=== PATIENT | male | born 1985 ===

== ENCOUNTER 2019-06-12 01:05 | Outpatient (CLI) | payer OTHER, SELFPAY ==
--- NOTE | 2019-06-12 09:17 | DI.MRI_ITS ---
EXAM: MR BRAIN WO CLINICAL HISTORY: PERSISTENT HEADACHE,FRONTAL PRESSURE ACROSS FACE AND BEHIND EYES TECHNIQUE: Multiplanar multisequence MRI of the brain was performed. COMPARISON: No exams were available for comparison FINDINGS: VENTRICLES AND EXTRA AXIAL SPACES: Normal in size and morphology for the patient's age. MIDLINE SHIFT: None. CEREBRAL PARENCHYMA: No focus of restricted diffusion to suggest acute infarct. No space-occupying le todd identified. HEMORRHAGE: None. BRAINSTEM/CEREBELLUM: Normal. CALVARIUM: Normal. VISUALIZED PARANASAL SINUSES/MASTOIDS:There is mucosal thickening seen in the maxillary sinuses bilat erally, left greater than right. There does appear to be a fluid level in the right maxillary sinus. BURNS PAIUTE OF PHILIPPE: Normal flow void. PITUITARY GLAND: Unremarkable. OTHER FINDINGS: None. IMPRESSION: Paranasal sinus disease. Findings of chronic sinusitis with acute disease suggested in the right max illary sinus. DATA REPOSITORY:
== END 2019-06-12 01:25 ==
PROVIDERS: Visit Provider Nurse Practitioner Adult Health
DX: R51 Headache (principal); J01.11 Acute recurrent frontal sinusitis
CPT/HCPCS: 70551